=== PATIENT | female | born 1935 | race Caucasian/White ===

== ENCOUNTER 2018-12-18 07:20 | Day surgery (SDC) | payer MEDICARE ==
[~2018-12-18] VITALS: Ht 160 cm; Wt 69.9 kg
[~2018-12-18 07:20] MED LIST: ADLT ASA LOW81 MG PO; ALPRAZOLAM0.25 MG PO; AMOXICILLIN500 MG PO; BABY ASPIRIN81 MG OR; CALCIUM 502 PO; CRESTOR10 MG PO; FLAX SEED OIL1300 MG PO; FLAX SEED PO; IRON CHEWS PO; LISINOPRIL5 MG OR; OMEPRAZOLE20 MG OR; OMEPRAZOLE20 MG PO; PERCOCET 5/325M1 TAB PO; SIMVASTATIN20 MG PO; SUPER B COM2 PO; SUPER B COMP PO; XARELTO10 MG OR; ZOSTAVAX IM
[2018-12-18 11:17] VITALS: BP 199/95
== END 2018-12-18 11:00 | disposition home or self-care (01) ==
LOC: ENDO 07:20
PROVIDERS: ATTEND Surgery
PROC: 0DBG8ZX Excision of Left Large Intestine, Via Natural or Artificial Opening Endoscopic, Diagnostic (ICD-10-PCS; principal; 2018-12-18)
PROC: 0DBF8ZX Excision of Right Large Intestine, Via Natural or Artificial Opening Endoscopic, Diagnostic (ICD-10-PCS; 2018-12-18)
DX: Z12.11 Encounter for screening for malignant neoplasm of colon (principal); D12.2 Benign neoplasm of ascending colon; D12.4 Benign neoplasm of descending colon; K57.30 Diverticulosis of large intestine without perforation or abscess without bleeding; K64.8 Other hemorrhoids

== ENCOUNTER 2018-12-18 11:00 | Emergency (ER) | payer MEDICARE ==
[~2018-12-18] VITALS: Ht 160 cm; Wt 75.0 kg
[2018-12-18 11:55] LABS: HEMATOCRIT 41.8 % (37.0-47.0); HEMOGLOBIN 13.7 g/dl (12.0-16.0); IMMATURE GRANULOCYTES 0.2 % (0.0-5.0); MEAN CELL VOLUME 88.6 fL CALC (80.0-100.0); MEAN CORPUSCULAR HGB CONC 32.8 g/L CALC (32.0-36.0); NEUT# 6.28 thou/uL (2.00-7.15); RED BLOOD COUNT 4.72 mill/uL (4.20-5.60); RED CELL DISTRI WIDTH 12.4 % (11.5-15.5)
[2018-12-18 12:12] LABS: ANION GAP 14 (6-22 (CALC)); BUN 11 mg/dL (8-23); BUN/CREATININE RATIO 13 (12-20 (CALC)); CHLORIDE 107 mmol/l (95-108); CREATININE 0.8 mg/dL (0.5-1.0); GFR > 60 ML/MIN (>=60 (CALC)); GFR FOR AFR.AMER. > 60 ML/MIN (>=60 (CALC)); POTASSIUM 4.3 mmol/l (3.5-5.1); SODIUM 140 mmol/l (137-146)
[2018-12-18 12:13] LABS: CARBON DIOXIDE 23 mmol/l (22-30)
[2018-12-18 13:00] VITALS: BP 174/80
== END 2018-12-18 13:05 | disposition home or self-care (01) ==
LOC: ED 11:00
PROVIDERS: Family Medicine
DX: I10 Essential (primary) hypertension (principal); M85.80 Other specified disorders of bone density and structure, unspecified site

== ENCOUNTER 2022-02-14 09:49 | Emergency (ER) | payer MEDICARE ==
[2022-02-14] VITALS (8 sets, daily range): BP systolic 132–152; BP diastolic 71–87
[~2022-02-14] VITALS: Ht 160 cm; Wt 66.2 kg
[2022-02-14] MEDS ORDERED: METFORMIN500 M2 PO (11:10)
[2022-02-14] MEDS ORDERED: MEDDOSEPAK PO (12:16)
[2022-02-14] MEDS ORDERED: LORTAB 1010 MG PO (12:16)
[2022-02-14] MEDS ORDERED: CYCLOBENZAPRINE10 MG PO (12:16)
== END 2022-02-14 12:39 | disposition home or self-care (01) ==
LOC: ED 09:49
DX: M47.26 Other spondylosis with radiculopathy, lumbar region (principal)